=== PATIENT | female | born 1930 | race African-American/Black ===

== ENCOUNTER 2018-02-09 22:04 | Inpatient (IN) | payer MEDICARE, MEDICAID ==
[2018-02-09] MEDS ORDERED: Atropine Sulfate 1 mg/10 ml Syringe ONE (22:29)
--- NOTE | 2018-02-09 22:44 | RAD ---
SINGLE VIEW OF THE CHEST: Comparison: 12-24-17 History: Low heart rate and chest pain. FINDINGS: Single view of the chest shows an enlarged but stable cardiomediastinal silhouette with atherosclerot ic calcifications in the aorta. There appear to be small bilateral pleural effusions with adjacent at electasis. IMPRESSION: Cardiomegaly and bilateral pleural effusions. POS: NURIAH
[2018-02-09 23:18] LABS: #Basophils 0.1 thou/uL (0.0-0.2); #Eosinphils 0.2 thou/uL (0.0-0.7); #Lymphocytes 1.2 thou/uL (1.20-3.40); #Monocytes 0.3 thou/uL (0.11-0.59); #Neutrophils 1.4 thou/uL (1.40-6.50); %Basophils 2.3 % (0.0-1.0); %Eosinophils 4.9 % (0.0-10.0); %Lymphocytes 38.3 % (21.0-51.0); %Monocytes 9.1 % (0.0-10.0); %Neutrophils 45.4 % (42.0-75.0); Hemoglobin 12.1 g/dL (12.0-16.0); Mean Corpuscular HGB CONC 32.1 g/dL (32.0-36.0); Mean Corpuscular Volume 93.5 fL (78.0-98.0); Mean Platelet Volume 8.5 fL (7.4-10.4); Platelet Count 171 thou/uL (130-400); RBC Distribution Width 16.1 % (11.5-14.5); Red Blood Cell (RBC) Count 4.01 mill/uL (4.20-5.40); White Blood Cell (WBC) Count 3.1 thou/uL (4.8-10.8)
[2018-02-09 23:39] LABS: ALT (SGPT) 13 U/L (8-55); AST (SGOT) 21 U/L (5-34); Albumin 2.7 g/dL (3.4-4.8); Alkaline Phosphatase 154 U/L (40-150); Anion Gap 11 mmol/L (10-20); BUN (Urea Nitrogen) 23 mg/dL (9.8-20.1); CK (CPK) 23 U/L (29-168); Calc. Creatinine Clearance 0 mL/min (70-130); Calcium 8.7 mg/dL (7.8-10.44); Carbon Dioxide 24 mmol/L (23-31); Chloride 109 mmol/L (98-107); Estimated GFR-MDRD 52; Globulin 3.3 g/dL (2.4-3.5); Glucose 96 mg/dL (83-110); Lipase 36 U/L (8-78); Magnesium 1.7 mg/dL (1.6-2.6); Potassium 4.3 mmol/L (3.5-5.1); Sodium 140 mmol/L (136-145)
[2018-02-09 23:43] LABS: CKMB 1.6 ng/mL (0-6.6); Troponin I 0.263 ng/mL (< 0.028)
[2018-02-10] MEDS ORDERED: Aspirin 300 MG Suppository ONE (00:51)
[2018-02-10] MEDS ORDERED: Enoxaparin Sodium 80 MG/0.8 ML SYRINGE ONE (00:51)
[2018-02-10 01:19] LABS: Bilirubin Negative (Negative); Blood, Urine Negative (Negative); Clarity CLEAR (Clear); Glucose, Urine (Dipstick) Negative (Negative); Leukocyte Negative (Negative); Nitrite Negative (Negative); Protein, Urine (Dipstick) Negative (Neg-Trace); Specific Gravity, Urine 1.017 (1.002-1.036)
[2018-02-10] MEDS ORDERED: Atropine Sulfate 1 mg/10 ml Syringe ONE (01:43)
[2018-02-10 02:28] LABS: Thyroid Stimulating Hormone 2.2361 uIU/mL (0.35-4.94)
[2018-02-10 03:03] VITALS: BMI 31.7
[2018-02-10] MEDS ORDERED: Atropine Sulfate 1 mg/10 ml Syringe IVP PRN (03:25)
--- NOTE | 2018-02-10 04:28 | PDOC.FPRHP ---
- History of Present Illness Chief Complaint: slow heart rate, "heavy breathing" History of Present Illness: 88 yo F with PMH CHF, Dementia came to ED for heart rate in 30s. Resides in senior care. Per daughter, patient was being fed when all of a sudden she started "breathing heavy." Nurse checked her pulse which was found to be in 30s. Shortly after patient grew lethargic and was not responsive to verbal or tactile stimulation which is why she was brought to the ED. ED Course: HR was in the 30s upon arriving in the ED and patient was given Atropine 1mg x2. HR minimally improved fluctuating in the 40-low 50s. - Allergies/Adverse Reactions Allergies Allergy/AdvReac Type Severity Reaction Status Date / Time No Known Drug Allergies Allergy Verified 02/10/18 03:16 - Home Medications Medication Instructions Recorded Confirmed Type Acetaminophen [Acetaminophen 650 mg NC Q4HR PRN 02/10/18 02/10/18 History Suppository] Allopurinol 300 mg PO DAILY 02/10/18 02/10/18 History Atorvastatin Calcium [Lipitor] 10 mg PO HS 02/10/18 02/10/18 History Bisacodyl 10 mg RC PRN PRN 02/10/18 02/10/18 History Carvedilol [Coreg] 6.25 mg PO BID 02/10/18 02/10/18 History Colchicine 0.6 mg PO BID 02/10/18 02/10/18 History Docusate [Colace] 100 mg PO DAILY 02/10/18 02/10/18 History Donepezil HCl [Aricept] 10 mg PO HS 02/10/18 02/10/18 History Furosemide [Lasix] 40 mg PO BID 02/10/18 02/10/18 History Ipratropium/Albuterol Sulfate 3 ml NEB TID PRN 02/10/18 02/10/18 History [Duoneb] Memantine HCl [Namenda] 10 mg PO BID 02/10/18 02/10/18 History Multivitamin W/ Minerals 1 tab PO DAILY 02/10/18 02/10/18 History [Theragran M] Omeprazole Magnesium [Prilosec] 20 mg PO HS 02/10/18 02/10/18 History - History PMHx:CHF, Dementia, HTN, Hyperlipidemia PSHx: Total abdominal hysterectomy for uterine CA, Cholecystectomy FHx: Heart problems (sister), Breast CA (mom), DM (brother) Social: Denies smoking, ETOH and illicit drug use - Review of Systems ROS unobtainable: due to mental status - Vital signs BP: [ 136/79] HR: [41] RR: [17] Tmax: [96.2] Pox: [100]% on [N.C. @ 2 LPM] Wt: [ 83.915] - Physical Exam Constitutional: NAD HEENT: normocephalic and atraumatic, no scleral icterus Neck: supple Chest: no lesions Heart: other (slow heart rate) Lungs: CTAB Abdomen: soft, non-tender Musculoskeletal: normal structure Neurological: other (GCS 11 (4 eye, 1 verbal, 6 motor)) Skin: other (ulcer on RLE) Psychiatric: other (unable to assess) FMR H&P: Results - Labs Result Diagrams: 02/09/18 22:50 02/09/18 22:50 Lab results: WBC 3.1 thou/uL (4.8-10.8) L 02/09/18 22:50 Hgb 12.1 g/dL (12.0-16.0) 02/09/18 22:50 Hct 37.5 % (36.0-47.0) 02/09/18 22:50 MCV 93.5 fL (78.0-98.0) 02/09/18 22:50 Plt Count 171 thou/uL (130-400) 02/09/18 22:50 Neutrophils % 45.4 % (42.0-75.0) 02/09/18 22:50 Sodium 140 mmol/L (136-145) 02/09/18 22:50 Potassium 4.3 mmol/L (3.5-5.1) 02/09/18 22:50 Chloride 109 mmol/L (98-107) H 02/09/18 22:50 Carbon Dioxide 24 mmol/L (23-31) 02/09/18 22:50 BUN 23 mg/dL (9.8-20.1) H 02/09/18 22:50 Creatinine 1.20 mg/dL (0.6-1.1) H 02/09/18 22:50 Glucose 96 mg/dL (83-110) 02/09/18 22:50 Lactic Acid 1.2 mmol/L (0.5-2.2) 02/09/18 22:50 Calcium 8.7 mg/dL (7.8-10.44) 02/09/18 22:50 Total Bilirubin 1.0 mg/dL (0.2-1.2) 02/09/18 22:50 AST 21 U/L (5-34) 02/09/18 22:50 ALT 13 U/L (8-55) 02/09/18 22:50 Alkaline Phosphatase 154 U/L (40-150) H 02/09/18 22:50 Creatine Kinase 23 U/L (29-168) L 02/09/18 22:50 CK-MB (CK-2) 1.6 ng/mL (0-6.6) 02/09/18 22:50 Serum Total Protein 6.0 g/dL (6.0-8.3) 02/09/18 22:50 Albumin 2.7 g/dL (3.4-4.8) L 02/09/18 22:50 Lipase 36 U/L (8-78) 02/09/18 22:50 Urine Ketones Negative mg/dL (Negative) 02/10/18 00:50 Urine Blood Negative (Negative) 02/10/18 00:50 Urine Nitrite Negative (Negative) 02/10/18 00:50 Ur Leukocyte Esterase Negative (Negative) 02/10/18 00:50 FMR H&P: A/P - Problem List (1) NSTEMI (non-ST elevated myocardial infarction) Current Visit: Yes Status: Acute Code(s): I21.4 - NON-ST ELEVATION (NSTEMI) MYOCARDIAL INFARCTION (2) CHF (congestive heart failure) Current Visit: Yes Status: Chronic Code(s): I50.9 - HEART FAILURE, UNSPECIFIED (3) Hypertension Current Visit: Yes Status: Chronic Code(s): I10 - ESSENTIAL (PRIMARY) HYPERTENSION (4) Hyperlipidemia Current Visit: Yes Status: Chronic Code(s): E78.5 - HYPERLIPIDEMIA, UNSPECIFIED (5) Bradycardia Current Visit: Yes Status: Acute Code(s): R00.1 - BRADYCARDIA, UNSPECIFIED (6) LEONEL (acute kidney injury) Current Visit: Yes Status: Acute Code(s): N17.9 - ACUTE KIDNEY FAILURE, UNSPECIFIED (7) Dementia Current Visit: Yes Status: Acute Code(s): F03.90 - UNSPECIFIED DEMENTIA WITHOUT BEHAVIORAL DISTURBANCE - Plan 88 yo F with NSTEMI and symptomatic bradycardia 1. NSTEMI -Admit to Telemetry -Started on Lovenox 80mg daily (renal dosing per pharmacy) -Oxygen support via N.C. @ 2LPM -Will notify cardiology in a.m. -EKG shows a flutter vs. a fib, RBBB, no prior EKG for comparison available -Troponins 0.263/0.260 2. Symptomatic Bradycardia -Initially symptomatic, now at baseline -s/p Atropine 1mg x2 in ED with improvement -Atropine 0.5mg PRN if HR <40 (max 3mg total) 3. LEONEL vs. CKD Stage 3 -Monitor Creatinine, unclear baseline 4. CHF -Unknown last EF (20-30% per family) -Echo ordered -Lasix IV 10mg (home dose 20mg PO) 5. Hypertension -Lasix IV 10mg (home dose 20mg PO) -Coreg (hold for now) 6. Hyperlipidemia -Home dose: Lipitor 10mg (hold for now) 7. Altered consciousness, likely related to bradycardic -Bedside swallow test, will resume home pends pending test PPX: Therapeutic lovenox FMR H&P: Upper Level - Pertinent history 88 yo F with PMH CHF (unknown last EF), HTN and dementia (non-verbal at baseline ) presented to ED after being found to have heart rate in 30s at NH. Patient's daughter was feeding her when she noticed some heavy breathing and she then became non-responsive. Nursing found pulse to be in the 30s and she was promptly sent to ED. Family reports no other symptoms over the last few days and that she has been at her baseline. - Pertinent findings Gen: awake, non-verbal, does not follow commands HEENT: able to close eyes tightly, conjunctiva non-injected, + JVD CV: Bradycardic, no murmur noted RESP: CTAB ABD: soft, nontender, BS present EXT: 2+ pitting edema BL to mid-thigh - Plan Date/Time: 02/10/18 0424 I, Cynthia Ty MD, PGY-3, have evaluated this patient and agree with findings/ plan as outlined by international marketing specialist resident. Pertinent changes/additions are listed here. 88 yo F with NSTEMI and symptomatic bradycardia 1. NSTEMI: Admit to Telemetry. Troponins downtrending. Lovenox 80mg daily ( renal dosing per pharmacy). Cardiology consult in a.m. 2. Symptomatic Bradycardia: Initially symptomatic, now at baseline. s/p Atropine 1mg x2 in ED with improvement. Atropine 0.5mg PRN if HR <40 (max 3mg total) 3. LEONEL vs. CKD Stage 3: Monitor Creatinine, unclear baseline 4. CHF: Unknown last EF (20-30% per family). Echo ordered. Lasix IV 10mg daily. Monitor UOP and for signs of fluid overload. 5. Hypertension: Lasix IV 10mg (home dose 20mg PO). Home Coreg held 6. Hyperlipidemia: Home lipitor held 7. Altered consciousness: likely related to bradycardic episode, now at baseline. Bedside swallow test, formal speech eval if needed. PPX: Therapeutic lovenox. DNR per family and NH paperwork. Discussed implications extensively with family who endorse this would be her wish. Attending Addendum - Attending Addendum Date/Time: 02/10/18 9176 I personally evaluated the patient and discussed the management with Dr. oClindres I agree with the History, Examination, Assessment and Plan documented above with any addition or exceptions noted below. 87 yo NH patient being feed by family member and noticed change in breathing . Patient brought to ER with marked bradycardia somewhat responsive to Atropine. Patient with atrial flutter with history of CHF on coreg. Patient is No code with minimal responsiveness, appears fluid overloaded, indeterminate troponin level; NSTEMI verse demand ischemia. Will consult with Cardiology for further recommendation coreg on hold. Appreciate recommendations per Cardiology.
[2018-02-10 04:40] LABS: Free T4 (Free Thyroxine) 1.21 ng/dL (0.70-1.48)
[2018-02-10 05:31] LABS: Troponin I 0.241 ng/mL (< 0.028)
[2018-02-10] MEDS ORDERED: Prevnar 13-Val Conj/PF 0.5 ML SYRINGE IM ONE (09:00)
[2018-02-10] MEDS ORDERED: Furosemide 20 MG/2 ML VIAL SLOW IVP SCH (09:00)
[2018-02-10 10:15] LABS: Hemoglobin 13.4 g/dL (12.0-16.0); Platelet Count 160 thou/uL (130-400)
--- NOTE | 2018-02-10 15:21 | PDOC.EVN ---
Event Note - Event Note Event Note: Discussed patients DNR and plan of care with Patient's family (two sons and two daughters) who are in agreement for palliative care and do not wish for any invasive measures including consideration of pacemaker given the current quality of her life. Family to meet with palliative care RN to discuss hospice care and further options at [place] if they so desire.
--- NOTE | 2018-02-10 16:14 | CON ---
DATE OF CONSULTATION: PRIMARY CARE PHYSICIAN: Dr. Bliss. The patient's primary biodiesel processing technician is Dr. Mel Larios. REFERRING DOCTOR: Shae Flores M.D. REASON FOR CARDIOLOGY CONSULTATION: Bradycardia and atrial flutter. HISTORY OF PRESENT ILLNESS: Ms. Julien is an 87-year-old -[place] female with significant history of dementia, hypertension, chronic kidney disease, hyperlipidemia, and systolic congestive heart failure. Due to chronic dementia, the patient's information was received from patient's medical record and one of the sons at the bedside. Per daughters, the patient's condition was stable until yesterday; however, after the patient ate the food, the patient started breathing hard. No response to the bowel or pain stimulation and due to those reasons, the patient was transferred from senior care to the emergency department for further evaluation. The patient was in the hospital this 12/2017 due to hypernatremia and acute systolic congestive heart failure and bradycardia. During that admission, the patient's family refused PEG tube placement and the patient's status changed to the DNR and according to the patient discharge notes on 12/2017 that time, patient was symptomatic and the patient's donepezil was discontinued secondary to his concern for the causing bradycardia. Unfortunately at this time, I cannot find patient's last vital sign on the chart; however, a discharge note saying the patient was bradycardic at the discharge time. Also Echocardiogram in 12/2017 showed her heart rhythm was in atrial fibrillation. The patient had echocardiogram done today, but the results are pending at this time. Echocardiogram in 12/2017 shows EF of 25%-30% and atrial fibrillation, severely dilated left atrium, moderate mitral valve regurgitation, mild aortic insufficiency, moderate tricuspid regurgitation, and moderately elevated pulmonary artery pressure and moderately increased ventricular size. EKG in the 12/25/2017 shows atrial flutter and heart rate of 45. PAST MEDICAL HISTORY: Systolic congestive heart failure, dementia, hypertension , hyperlipidemia, and chronic kidney disease stage 3. PAST SURGICAL HISTORY: Total hysterectomy due to the uterine cancer and cholecystectomy. FAMILY HISTORY: Patient's mother has a significant history of MD and breast cancer. The patient's sister has a heart problem. Patient's son has a history of MD and stent placement in 2005 at age of 50. The patient's another son has a history of diabetes. SOCIAL HISTORY: Patient living in the senior care. The third son reports the patient never has smoking, ETOH or illicit drug abuse. The patient has a 7 children. They live well except that some siblings who have a medical history. ALLERGIES: No known drug allergies. CURRENT MEDICATIONS: At the senior care aspirin 650 mg rectal suppository every 4 hours as needed, DuoNebs p.r.n., Aricept 10 mg at night, colchicine 0.6 mg twice a day, allopurinol 300 mg once a day, Prilosec 20 mg at night, Lasix 40 mg twice a day, carvedilol 6.25 mg twice a day, Namenda 10 mg twice a day, atorvastatin 10 mg once a day, multivitamin 1 tablet once a day, and Colace 100 mg once a day. REVIEW OF SYSTEMS: Unable to obtain due to mental status. PHYSICAL EXAMINATION: VITAL SIGNS: Blood pressure 136/84, heart rate 38-41, atrial flutter, temperature 96.2, respiratory rate 12, O2 saturation 100% with 2 liters nasal cannula. GENERAL: Patient without any acute distress. HEAD: Normocephalic, atraumatic. EYES: Extraocular muscle movement intact. ENT: Oral mucosa dry, but other nasal mucosa were moist without lesion. NECK: No JVD. Supple. LUNGS: Clear to auscultation bilaterally, but diminished at the bases. CARDIOVASCULAR: Irregularly irregular. There are no S3 or S4. No significant murmur, hives, thrill or bruits noted. There are 2+ pulses in the bilateral dorsal pedis, posterior tibial, but 1+ in the bilateral popliteal pulses. Carotid pulses are present. There are 3+ in the right lower extremity with a dressing around the ankle and 2+ edema to the left lower extremity. ABDOMEN: Soft, nontender or mass to palpate, nondistended. Bowel sounds are present but very hypoactive. MUSCULOSKELETAL: Able to move all extremities. She did not follow any command. SKIN: Warm and dry. No skin rash or lesion or bruise noted except that the dressing to right ankle and Wound Care consult was done by patient's primary care doctor. NEUROLOGIC: The patient is drowsy and lethargic. The patient wakes several times with verbal command, but she is not following any commands or answer any questions. EKG: A 12-lead EKG shows atrial flutter with heart rates of 40s. LABORATORY DATA: WBC 3.1, hemoglobin 13.4, hematocrit 42.2, platelet 160. Sodium 140, potassium 4.3 and troponin 0.263, 0.260, 0.241 and TSH 2.2361, free T4 1.21. Chest x-ray showed the cardiomegaly and bilateral pleural effusion. Echocardiogram was done today and result is pending at this time. ASSESSMENT AND PLAN: 1. Bradycardia. The patient's heart rate on the telemetry records has shown from 35-40s; however, due to the patient's physical status, the patient may not be a good candidate for pacemaker placement. Also, family member have not decided whether patient would like to have a pacemaker. Dr. Larios will discuss with the patient's family, especially the patient's daughter today for the patient's further medical treatment plan. At this moment, patient does not have any medication which might cause bradycardia. 2. Atrial flutter. The patient is on the Lovenox 40 mg subcutaneously once a day which is a renal dose. We would like to continue to monitor on telemetry. 3. Elevated troponin level. Again, patient is not a good candidate for further cardiac workup due to acute kidney insufficiency, the patient's physical condition. We would like to continue to monitor on the telemetry. At this moment, the patient is not on beta meggan due to the bradycardia. 4. Chronic systolic congestive heart failure. The patient had an echocardiogram today, the result is pending at this moment. At this moment, the patient is on the Lasix 10 mg IV push daily and the patient's breathing condition is stable at this moment. We would like to continue current medication. At this moment, the patient is not on JUAN CARLOS or ARB medication due to acute kidney insufficiency. 5. Hypertension. The patient's blood pressure has been stable at this moment, we would like to continue to monitor and adjust patient's medication as appropriate. 6. Hyperlipidemia. Patient on the atorvastatin 10 mg once a day in a senior care. We would like to resume the medicine when patient's condition is stable. Thank you very much for allowing Cardiology Service to participate in care of this patient. We will follow along with the patient care team and make further recommendations as appropriate. ENEDINA
[2018-02-10 16:58] VITALS: BP 160/72
[2018-02-10] MEDS ORDERED: Enoxaparin Sodium 80 MG/0.8 ML SYRINGE SC SCH (21:00)
[2018-02-10 21:48] VITALS: TEMP 96.9
[2018-02-11] MEDS ORDERED: Enoxaparin Sodium 40 MG/0.4 ML SYRINGE SC SCH (09:00)
--- NOTE | 2018-02-11 09:23 | ADD-CON ---
ADDENDUM INDICATION FOR CONSULTATION: An 87-year-old female with atrial flutter and severe bradycardia with m ental status changes. Please note that she has already been seen and the dictation has already been done by my nurse practitioner Celeste Loaiza NP. This is an addendum to that note. I have reviewed an d discussed the patient with the nurse practitioner and would agree with her assessment and plan. This very unfortunate 87-year-old female I have seen in the past several years ago. At that time, gonzález sorensen has already had some dementia and the family wanted to have conservative therapy. At this time, gonzález sorensen presented again with severe bradycardia, atrial flutter and was found to have an atrial flutter wit h mental status changes. The heart rate did improve slightly after she was given some atropine in [facility] emergency room, but still continued to have heart rates in the 30s and 40s with the underlying atri al flutter. She has significant dementia, apparently is bedridden and is able to eat pureed foods; h owever. Otherwise, she has had no significant complaints of chest pain. Her cardiac enzymes are sli ghtly indeterminate which may be due to demand ischemia associated with the bradycardia. She does no t offer of any complaints herself. She is lying in the bed. She is unable to give the history. She is essentially nonverbal. I did have a discussion with the family members today; however, they do n ot want a pacemaker insertion in this lady to correct the bradycardia and she is obviously not a very good candidate to undergo any further cardiac interventions certainly non-ablation or any other stre ss testing to rule out evidence of coronary artery disease or to ablation of the atrial flutter. She has had no tachycardia associated with the events. She did have an echocardiogram today which showe d severe decrease in left ventricular systolic function. Ejection fraction still about 25%-30%. She had a recent echocardiogram also in December of this year, which showed a similar ejection fraction 25%-3 0%. She has what appears also to be diastolic dysfunction. She had moderate mitral and tricuspid va lve regurgitation. For her past medical history, social history, family history, review of systems, please refer to the notes already dictated. PHYSICAL EXAMINATION: GENERAL: Reveals an elderly female with heart rate in the 30s to 40s. VITAL SIGNS: Her blood pressure is 136/84. She is afebrile, respiratory rate is about 16. HEENT: Shows the head to be normocephalic, atraumatic. Carotid pulses are present. I cannot hear a ny significant bruits. CHEST: Clear to auscultation, but she has poor inspiratory effort. She is unable to follow the comm ands. CARDIOVASCULAR: Heart rate is somewhat irregular, but has obvious bradycardia. She has a systolic m urmur at the apex. ABDOMEN: Soft and nontender. EXTREMITIES: Show 1+ lower extremity edema. She has some type of wound dressing on the right lower extremity. Pedal pulses are difficult to palpate. NEUROLOGIC: The patient obviously has dementia and may have also suffered a CVA. She does not follo w commands, at this time again is nonverbal. Her EKG shows atrial flutter with a bradycardia. Echocardiogram shows severe decrease in left ventri cular systolic function. Her hemoglobin is 13.4, potassium 4.3. Cardiac enzymes show troponin I of 0.26. IMPRESSION: 1. Atrial flutter with a slow ventricular response. She is not a candidate to undergo intervention for ablation. The family does not desire any form of intervention of pacemaker insertion. We had a discussion about this today and they prefer just to discuss hospice in regard to the patient. 2. Elevated cardiac enzymes, which could be due to demand ischemia. She does not meet the criteria for any further cardiac workup or evaluation given her age and overall medical problems. 3. Acute on chronic, most likely systolic as well as diastolic heart failure. She only has mild dave ma at this time and appears to be otherwise doing quite well from a heart failure standpoint, certain ly given her ejection fraction of 25%-30%. However, she is not going to give any history. She does not do any physical activity that would cause her to be short of breath. At this time, we are more t navarro happy to assist in the care of this patient any way possible; however, the family does not want f urther intervention on the patient. As far as bradycardia is concerned, I do not have any other opti ons to increase the heart rate. Certainly, she does not have any tachycardia associated with this an d the long-term prognosis is obviously very poor.
--- NOTE | 2018-02-11 15:08 | DIS-2 ---
DATE OF ADMISSION: 02/10/2018 DATE OF DISCHARGE: 02/10/2018 ADMITTING ATTENDING: Clemente Hamlin MD DISCHARGE ATTENDING: Clemente Hamlin MD ADMITTING RESIDENT: Kassi Colindres MD DISCHARGE RESIDENT: Shae Flores MD CONSULTATIONS: Dr. Larios with Cardiology. PROCEDURES: None. IMAGING: Echocardiogram showed an ejection fraction of 25%-30%. Diastolic dysfunction is likely, mo derately dilated left atrium, moderately enlarged right atrium, moderate mitral regurgitation. Aorti c valve leaflets are somewhat thickened. Mild aortic regurgitation, [id number] tricuspid regur gitation, and mild pulmonic regurgitation. PRIMARY DIAGNOSES: 1. [id number] myocardial infarction, likely secondary to demand ischemia. 2. Symptomatic bradycardia. 3. Acute kidney injury versus chronic kidney disease, stage 3. SECONDARY DIAGNOSES: 1. Heart failure with reduced ejection fraction. 2. Hypertension. 3. Hyperlipidemia. 4. Dementia. DISCHARGE MEDICATIONS: 1. Allopurinol 300 mg p.o. daily. 2. Aspirin 81 mg p.o. daily. 3. Atorvastatin 10 mg p.o. at bedtime. 4. Colchicine 0.6 mg p.o. b.i.d. 5. Docusate 100 mg p.o. daily. 6. Donepezil 10 mg p.o. at bedtime. 7. Furosemide 40 mg p.o. b.i.d. 8. Omeprazole 20 mg p.o. at bedtime. 9. Memantine 10 mg p.o. b.i.d. 10. DuoNeb 3 mL nebs t.i.d. p.r.n. DISCONTINUED MEDICATIONS: None. HISTORY OF PRESENT ILLNESS AND HOSPITAL COURSE: This is an 87-year-old female with end-stage dementi a, who is nonverbal, [facility] resident, who presented due to a severe bradycardic episode. She w as found to have a heart rate of 30. In the [facility], became unresponsive while she was there. The patient became more responsive, but was still lethargic at the time sent here. The patient was g iven atropine 1 mg x2 in the ER. The patient's heart rate remained around the 40s. The patient was also bleeding very heavily and would have episodes where her respiratory rate would get down to 8 tommy es a minute. The patient had initial elevated troponins to 0.263. These trended down to 0.260 and t hen 0.241. The patient was started on therapeutic Lovenox initially. The patient had an echocardiog john done that showed an EF of 25%-30%. Dr. Larios with Cardiology was consulted; however, the family e lected that due to the patient's severe end-stage dementia and quality of life as well as her age lucas t they did not want to proceed with any further interventions. They spoke to palliative care and dec ided to proceed with hospice. The therapeutic Lovenox was stopped at this time and the patient was t ransferred later that night on back to [facility] with hospice services. The patient's [facility] physician was notified of this at that time. Hospice will take over her care and likely a djust and/or discontinue many of her medications at the time of her [facility] to the [facility]. DISPOSITION: Guarded. DISCHARGE INSTRUCTIONS: 1. Location: [facility] with hospice. 2. Activity: As tolerated. 3. Diet: Aspiration precautions per speech recommendations at [facility]. 4. Followup: With hospice within 1-2 days.
== END 2018-02-10 21:34 | disposition hospice, inpatient (51) | DRG 280 ==
LOC: ERS 22:04 → 2NO 02-10 01:06
PROVIDERS: ADMIT Student in an Organized Health Care Education/Training Program; ATTEND Student in an Organized Health Care Education/Training Program
DX: I21.A1 Myocardial infarction type 2 (principal); I50.43 Acute on chronic combined systolic (congestive) and diastolic (congestive) heart failure; I48.92 Unspecified atrial flutter; I13.0 Hypertensive heart and chronic kidney disease with heart failure and stage 1 through stage 4 chronic kidney disease, or unspecified chronic kidney disease; N17.9 Acute kidney failure, unspecified; N18.3 Chronic kidney disease, stage 3 (moderate); J44.9 Chronic obstructive pulmonary disease, unspecified; M10.9 Gout, unspecified; L89.890 Pressure ulcer of other site, unstageable; M19.90 Unspecified osteoarthritis, unspecified site; F03.90 Unspecified dementia, unspecified severity, without behavioral disturbance, psychotic disturbance, mood disturbance, and anxiety; R00.1 Bradycardia, unspecified; E78.5 Hyperlipidemia, unspecified; Z66 Do not resuscitate; I08.3 Combined rheumatic disorders of mitral, aortic and tricuspid valves; Z85.42 Personal history of malignant neoplasm of other parts of uterus; Z90.49 Acquired absence of other specified parts of digestive tract; Z90.710 Acquired absence of both cervix and uterus; Z86.73 Personal history of transient ischemic attack (TIA), and cerebral infarction without residual deficits
CPT/HCPCS: 36415; 36416; 71045; 80053; 81003; 82553; 82565; 83605; 83690; 83735; 84439; 84443; 84484; 85014; 85018; 85025; 85049; 87040; 87086; 90471; 90670; 93005; 93306; 94760; 96372; 96374; 96376; A4216; A4353; G0009; G8996-GN-CM; G8997-GN-CM; J0461; J1650; J1940